=== PATIENT | female | born 1980 | race Caucasian/White ===

== ENCOUNTER 2022-04-22 22:20 | Emergency (ER) | payer SELFPAY ==
[2022-04-22 22:27] VITALS: BP 146/82; PULSE 115; RESP 18; TEMP 36.6; O2SAT 94; BMI 24.3
--- NOTE | 2022-04-22 22:45 | XRR_ITS ---
PROCEDURE INFORMATION: Exam: XR Right Hand Exam date and time: 04/22/2022 10:51 PM Age: 42 years old Clinical indication: Hand; Right; Patient HX: C/O pain and swelling x 2 days. No injury. Most notable swelling to posterior aspect between 1st and 2nd metacarpal. ; Additional info: Pain, swelling, redness TECHNIQUE: Imaging protocol: Radiologic exam of the Right hand. Views: 3 or more views. COMPARISON: No relevant prior studies available. FINDINGS: Bones/joints: The alignment of the joints is anatomic and the joint spaces are maintained. There is no evidence of acute fracture. No periosteal reaction, cortical disruption or lytic lesions are identified. Soft tissues: There is soft tissue swelling of the thenar eminence and dorsum of the hand at the level of the metacarpals and wrist. No radiopaque foreign body is seen. XR/XR hand RT min 3V* [id number] IMPRESSION: 1. Right hand soft tissue swelling. 2. No acute fracture or dislocation. 3. No radiographic evidence of osteomyelitis at this time.
--- NOTE | 2022-04-22 23:11 | ED_ITS ---
Documented by User: Kaylie Turner, BEHAVIORAL INTERVENTION SPECIALIST-C 04/22/22 23:18 HPI - Extremity Problem General: Chief complaint: Extremity Injury, Upper Stated complaint: right arm injury Time Seen by Provider: 04/22/22 22:20 History of Present Illness: Patient is in today for right hand pain. She reports that the hand pain started yesterday after she had been lifting heavy crates and then she went to clean her bosses house and the the pain got worse. She reports that somebody she knows is a nurse and told her her hand was infected. She denies fever or chills. She denies any possibility of . She denies any known injury to the hand. She reports that she has had a blood infection in the past. Associated symptoms: Deny chest pain or fever(s) Review of Systems Const: Denies: fever(s), chills or body aches Card: Denies: chest pain or palpitations Resp: Denies: dyspnea Musc: Reports: other (Right hand pain) Physical Exam Const: OTHER: Patient is agitated and minimally cooperative with HPI questioning. Patient is a poor historian Resp: COMMON NORMALS: normal respiratory effort and No use of accessory muscles Extremity: NARRATIVE EXTREMITY EXAM: Patient right dorsal hand is swollen and slightly erythematous. A soft palpable mass is appreciated at the wrist joint suspicious for a ganglion cyst. Patient has a couple of pinpoint scabs on her fingers and becomes extremely defensive when I asked her what those were from. Patient refuses to answer. Patient has limitations in flexion of the hand related to swelling and pain. Radial and ulnar pulses are intact. Cap refills less than 3 seconds. Course Vital Signs: Vital signs: Vital Signs Temperature 97.8 F 04/22/22 22:27 Pulse Rate 115 H 04/22/22 22:27 Respiratory Rate 18 04/22/22 22:27 Blood Pressure 146/82 04/22/22 22:27 Pulse Oximetry 94 04/22/22 22:27 Oxygen Delivery Me thod 04/22/22 22:27 MDM - Extremity (Nontraumatic) Medical Decision Making Consider ganglion cyst, abscess, cellulitis, fracture X-rays done 3 view hand x-ray wet read: No acute osseous deformity, soft tissue edema is present. Awaiting radiologist read. Patient states that her last tetanus is greater then 5 years ago and likely greater than 10 years ago. Ordered to update tetanus vaccination. Start patient on antibiotic clindamycin to cover for cellulitis. Ordering Toradol for pain. Advised patient of plan of care and that I was awaiting radiologist read. Patient was agreeable. After I left the room patient walked out of the hospital and told the front desk agent that she had antibiotics at home. Patient left AMA before appropriate treatment could be rendered Lab Data Radiology Impressions Hand X-Ray 04/22/22 22:45 IMPRESSION: 1. Right hand soft tissue swelling. 2. No acute fracture or dislocation. 3. No radiographic evidence of osteomyelitis at this time. Discharge Plan Discharge Patient Disposition: Left Against Medical Advice Clinical Impression: Cellulitis Condition: Stable Coding Level of Care Code ED Automatic Engraver for Chg Fwd Exam Problem Focused Documented by User: Leeroy Lechuga DO 04/24/22 06:45 HPI - Extremity Problem General: Chief complaint: Extremity Injury, Upper Stated complaint: right arm injury Time Seen by Provider: 04/22/22 22:20 Course Vital Signs: Vital signs: Vital Signs Temperature 97.8 F 04/22/22 22:27 Pulse Rate 115 H 04/22/22 22:27 Respiratory Rate 18 04/22/22 22:27 Blood Pressure 146/82 04/22/22 22:27 Pulse Oximetry 94 04/22/22 22:27 Oxygen Delivery Me thod 04/22/22 22:27 MDM - Extremity (Nontraumatic) Medical Decision Making Consider ganglion cyst, abscess, cellulitis, fracture X-rays done 3 view hand x-ray wet read: No acute osseous deformity, soft tissue edema is present. Awaiting radiologist read. Patient states that her last tetanus is greater then 5 years ago and likely greater than 10 years ago. Ordered to update tetanus vaccination. Start patient on antibiotic clindamycin to cover for cellulitis. Ordering Toradol for pain. Advised patient of plan of care and that I was awaiting radiologist read. Patient was agreeable. After I left the room [facility] and told the front desk agent that she had antibiotics at home. Patient left AMA before appropriate treatment could be rendered Chart reviewed and patient discussed with midlevel. Agree with assessment and plan. Lab Data Radiology Impressions Hand X-Ray 04/22/22 22:45 IMPRESSION: 1. Right hand soft tissue swelling. 2. No acute fracture or dislocation. 3. No radiographic evidence of osteomyelitis at this time. Discharge Plan Discharge Patient Disposition: Left Against Medical Advice Clinical Impression: Cellulitis Condition: Stable Coding Level of Care Code ED Automatic Engraver for Pascual Fwrobert Exam Problem Focused
--- NOTE | 2022-04-22 23:11 | PC.NURSE ---
After doctor saw patient, patient walked out saying 'i have antibiotics at home. Im leaving.' Pt eloped. Provider notified.
== END 2022-04-22 23:13 | disposition left against medical advice (07) ==
PROVIDERS: Emergency Provider Nurse Practitioner Family
DX: L03.113 Cellulitis of right upper limb (principal)
CPT/HCPCS: 73130; 99283

== ENCOUNTER 2022-05-04 20:14 | Emergency (ER) | payer SELFPAY ==
--- NOTE | 2022-05-04 20:17 | ECG_ITS ---
[facility] Test Date: 2022-05-04 Pat Name: Mariajose Harrison Department: Room: Gender: Female Record Keeper: : 1980 Requested By: Anirudh Smith Order Number: [id number] Deven MD: Kelli Woods M.D. Measurements Intervals [place] Rate: 86 P: 39 TN: 186 QRS: 66 QRSD: 94 T: 63 QT: 365 QTc: 438 Interpretive Statements SINUS RHYTHM No previous ECG available for comparison Electronically Signed On 05-06-2022 9:21:50 HEALTH CARE ADMINISTRATOR by Kelli Woods M.D. [id number]
[2022-05-04 20:18] VITALS: BP 166/100; PULSE 100; RESP 26; TEMP 36.6; O2SAT 97; BMI 23.6
--- NOTE | 2022-05-04 20:24 | ED_ITS ---
HPI - Overdose General: Chief Complaint: Altered Mental Status Stated Complaint: possible od Time Seen by Provider: 05/04/22 20:17 Source: EMS Mode of arrival: EMS Limitations: no limitations History of Present Illness: Patient presents here with EMS for an accidental overdose. She does have extensive history of IV drug use states she injected this diarrhea which she believes was fentanyl but she is unsure EMS did give her intranasal Narcan and found her unresponsive she is now awake and alert able answer my questions she denies any suicidality or homicidality. Review of Systems Const: Denies: fever(s), chills, body aches or change in appetite Eyes: Denies: blurry vision or eye discomfort ENMT: Denies: throat pain or dental pain Card: Denies: chest pain Resp: Denies: dyspnea GI: Denies: abdominal pain, nausea, vomiting or diarrhea : Denies: dysuria Musc: Denies: neck pain or back pain Skin/Breast: Denies: rash Neuro: Denies: headache(s) Psych: Denies: depression Emmanuel/Lymph: Denies: easy bruising All/Imm: Denies: urticaria PFSH ED PFSH: Medical History (Updated 05/04/22 @ 20:28 by Anirudh Smith MD) No pertinent past medical history Social History Substance/Drug Use: current Physical Exam Const: COMMON NORMALS: patient oriented x3 OTHER: disheveled and under influence of subsyances HENMT: COMMON NORMALS: normocephalic and atraumatic HEAD & SCALP: normocephalic and atraumatic Eye: COMMON NORMALS: Equal, round and reactive pupils present and EOMs intact bilaterally PUPIL: Yes Equal, round and reactive pupils present Neck/C-Spine: COMMON NORMALS: full ROM and supple Chest: COMMONS NORMALS: normal inspection of the chest and normal palpation of entire chest wall Resp: COMMON NORMALS: normal respiratory effort, No retractions, No use of accessory muscles and clear to auscultation bilaterally AUSCULTATION: clear to auscultation bilaterally Cardio: COMMON NORMALS: regular rate, regular rhythm and No murmurs present (Cardio) RATE: regular rate RHYTHM: regular rhythm GI: COMMON NORMALS: Normal to inspection, nondistended, normoactive bowel sounds present, Soft to palpation, non-tender and no masses PALPATION: Yes Soft to palpation Extremity: COMMON NORMALS: normal to inspection and full ROM Neuro: COMMON NORMALS: patient oriented x3, moves all extremities and no focal motor deficits Psych: COMMON NORMALS: mental status grossly normal, Normal thought process present and cooperative THOUGHT PROCESS: Normal thought process present Skin: COMMON NORMALS: no rashes or lesions noted and no wounds GENERAL SKIN EXAM: no rashes or lesions noted Course Vital Signs: Vital signs: Vital Signs Temperature 97.9 F 05/04/22 20:18 Pulse Rate 87 05/04/22 22:28 Respiratory Rate 20 H 05/04/22 22:28 Blood Pressure 166/100 05/04/22 20:18 Pulse Oximetry 100 05/04/22 22:28 Oxygen Delivery Me thod 05/04/22 20:18 MDM - Overdose Medical Decision Making Patient presents here with drug abuse and accidental drug overdose patient's been alert awake and here she refused any testing refused blood draw or urine patient had individual come and picked her up when she was discharged she was awake alert and able to make medical decision making at discharge. Discharge Plan Discharge Patient Disposition: Home Clinical Impression: Drug use Discharge Orders: Discharge ED (Routine); Ordered 05/04/22 Ordered By: Anirudh Smith Discharge Diet: Advance as tolerated Discharge Activity: Resume usual activity Patient Instructions: Polysubstance Use Disorder (ED) Coding Level of Care Code ED Microbiological Laboratory Technician for Pascual Hannah Exam Comprehensive
[2022-05-04 22:28] VITALS: PULSE 87; RESP 20; O2SAT 100
== END 2022-05-04 22:25 | disposition home or self-care (01) ==
PROVIDERS: Emergency Provider Emergency Medicine
DX: F19.90 Other psychoactive substance use, unspecified, uncomplicated (principal)
CPT/HCPCS: 93005; 99283

== ENCOUNTER 2022-12-02 20:04 | Emergency (ER) | payer BC, MEDICAID, SELFPAY ==
[2022-12-02 20:38] VITALS: BP 124/71; PULSE 92; RESP 16; TEMP 36.4; O2SAT 100; BMI 24.0
--- NOTE | 2022-12-02 22:31 | XRR_ITS ---
PROCEDURE INFORMATION: Exam: XR Chest Exam date and time: 12/02/2022 10:41 PM Age: 42 years old Clinical indication: Shortness of breath; Additional info: Shortness of breath after wasp sting TECHNIQUE: Imaging protocol: Radiologic exam of the chest. Views: 1 view. COMPARISON: No relevant prior studies available. FINDINGS: Lungs: Unremarkable. No consolidation. Pleural spaces: Unremarkable. No pleural effusion. No pneumothorax. Heart/Mediastinum: Unremarkable. No cardiomegaly. Bones/joints: Unremarkable. XR/XR chest 1V portable [id number] IMPRESSION: No acute findings.
--- NOTE | 2022-12-02 22:33 | ED_ITS ---
HPI - Animal Bite General: Chief Complaint: Animal Bite Stated Complaint: Yellow Jackets Stings Time Seen by Provider: 12/02/22 21:49 History of Present Illness: Patient is a 42-year-old female comes to the ED after multiple yellowjacket stings. Patient was outside today walking through some brush and she had multiple yellowjacket sting her back, abdomen, bilateral thighs and left arm. She is now having pain all over her body where the stings occurred. She endorses feeling a little short of breath and states she has been anxious since she got stung. Denies any allergies to yellow jackets, bees or wasp stings. Denies any lip or tongue swelling, throat tightening. Associated symptoms: Deny chills, fever(s) or headache(s) Review of Systems Const: Denies: fever(s), chills or fatigue Eyes: Denies: change in vision or eye discomfort ENMT: Denies: throat pain, odynophagia, nasal discharge or nasal congestion Card: Denies: chest pain, palpitations, edema, swelling of feet/ankles, dyspnea on exertion or orthopnea Resp: Reports: dyspnea; Denies: productive cough or non-productive cough GI: Denies: abdominal pain, nausea, vomiting, diarrhea, constipation or hematochezia : Denies: flank pain, dysuria or hematuria Musc: Denies: neck pain, back pain or extremity swelling Skin/Breast: Reports: new lesions (Yellowjacket stings on torso arms and thighs.); Denies: rash Neuro: Denies: headache(s), numbness in extremities or weakness in extremities All/Imm: Denies: throat swelling or tongue swelling [facility] ED PFSH: Medical History (Updated 12/03/22 @ 00:41 by KASANDRA Acosta) No pertinent family history No pertinent past medical history Social History Substance/Drug Use: current Physical Exam Const: COMMON NORMALS: patient oriented x3 and alert HENMT: COMMON NORMALS: normocephalic HEAD & SCALP: normocephalic MOUTH: Normal oral and palatal mucosa present, lip normal and tongue normal THROAT: posterior oropharynx normal and uvula midline Neck/C-Spine: COMMON NORMALS: supple GENERAL: Yes normal visual inspection Resp: COMMON NORMALS: normal respiratory effort, No retractions, No use of accessory muscles and clear to auscultation bilaterally AUSCULTATION: clear to auscultation bilaterally and wheezes expiratory wheezes and right lower Cardio: COMMON NORMALS: regular rate, regular rhythm, S1 normal heart sound present, S2 normal heart sound present, No gallops present (Cardio), No clicks present (Cardio), No murmurs present (Cardio) and Peripheral pulses 2+ throughout RATE: regular rate RHYTHM: regular rhythm HEART SOUNDS: S1 normal heart sound present and S2 normal heart sound present PERIPHERAL PULSES: Peripheral pulses 2+ throughout GI: COMMON NORMALS: Normal to inspection, nondistended, normoactive bowel sounds present, Soft to palpation, non-tender and no masses PALPATION: Yes Soft to palpation : COMMON NORMALS: Yes no CVA tenderness BLADDER/KIDNEY EXAM: Yes no CVA tenderness Back/Pelvis: COMMON NORMALS: no CVA tenderness Extremity: COMMON NORMALS: normal to inspection Neuro: COMMON NORMALS: patient oriented x3 SENSORIUM/ORIENTATION: Yes alert GAIT: Yes Normal gait present Skin: NARRATIVE SKIN EXAM: Patient has multiple insect sting bites that appear as erythemic papules on abdomen, back and thighs. GENERAL SKIN EXAM: dry skin Course Vital Signs: Vital signs: Vital Signs Temperature 97.5 F L 12/02/22 23:19 Pulse Rate 78 12/02/22 23:19 Respiratory Rate 18 12/02/22 23:19 Blood Pressure 124/71 12/02/22 23:19 Pulse Oximetry 99 12/02/22 23:19 Oxygen Delivery Me thod Room Air 12/02/22 22:54 MDM - Animal Bite Medical Decision Making Patient is a 42-year-old female comes to the ED after multiple yellowjacket stings. Patient was outside today walking through some brush and she had multiple yellowjacket sting her back, abdomen, bilateral thighs and left arm. She is now having pain all over her body where the stings occurred. She endorses feeling a little short of breath and states she has been anxious since she got stung. Denies any allergies to yellow jackets, bees or wasp stings. Denies any lip or tongue swelling, throat tightening. Vitals are stable. Patient appears nontoxic in no acute distress. She has some mild right lower lobe wheezing. Multiple yellowjacket sting sites seen on abdomen and back. No lip or tongue swelling noted. Chest x-ray showed no acute findings. Patient was given a dose of Benadryl, Toradol and Depo-Medrol while here in the ED. She was also given DuoNeb breathing treatment here in the ED as well. Her symptoms improved and she was ready to go home. Patient diagnosed with sting by emily and discharged home with a prescription for prednisone and ibuprofen. Told to follow-up with PCP within the next week for reevaluation. Return to ED precautions given. Patient understood and agreed with plan. Lab Data Radiology Impressions Chest X-Ray 12/02/22 22:31 IMPRESSION: No acute findings. Discharge Plan Discharge Patient Disposition: Home Clinical Impression: Stung by anna moeller Qualifiers: Encounter type: initial encounter Injury intent: accidental or unintentional Qualified Code(s): T63.461A - Toxic effect of venom of wasps, accidental (unintentional), initial encounter Condition: Stable Prescriptions: New ibuprofen 800 mg tablet 800 mg PO Q8H PRN (Reason: pain) Qty: 20 0RF prednisone 20 mg tablet 20 mg PO BID 3 Days Qty: 6 0RF Discharge Orders: Discharge ED (Routine); Ordered 12/02/22 Ordered By: Julien Hidalgo Discharge Diet: Regular Discharge Activity: Increase activity as tolerated Patient Instructions: Insect Bite or Sting (ED) Activity Restrictions/Additional Instructions: Follow-up with medical provider as directed in the next 3 to 5 days for reevaluation. Take medications as prescribed. Return to the ER or your medical provider if condition worsens. Please read and understand discharge instructions. Thank you for choosing [facility] for your healthcare needs today. Please realize this is an emergency room and that we are providing you with a medical screening exam and this may not be complete and all inclusive of all the testing and or work up that you may need to determine your ailment or severity of your illness. It is very important that you follow up as instructed or that you return to the Emergency Department should you have concerns or if your condition changes or worsens in any way. Coding Level of Care Code ED Internal Specialist for Pascual Hannah
[2022-12-02] MEDS: ipratropium-albuterol 3 mL Neb 6 ML INHALATION (22:49)
[2022-12-02 22:50] VITALS: PULSE 78; RESP 20; O2SAT 99
[2022-12-02 22:54] VITALS: PULSE 78; RESP 18; O2SAT 99
[2022-12-02] MEDS: ketorolac 60 mg/2 mL INJ IM (23:01)
[2022-12-02] MEDS: methylPREDNISolone (DEPO) 80 MG/ML INJ 1 mL IM (23:01)
[2022-12-02] MEDS: diphenhydrAMINE 25 mg Capsule PO (23:02)
[2022-12-02 23:19] VITALS: BP 124/71; PULSE 78; RESP 18; TEMP 36.4; O2SAT 99
== END 2022-12-02 23:20 | disposition home or self-care (01) ==
PROVIDERS: Emergency Provider Physician Assistant
DX: T63.461A Toxic effect of venom of wasps, accidental (unintentional), initial encounter (principal)
CPT/HCPCS: 71045; 94640; 96372; 99284; J1040; J1885

== ENCOUNTER → 2023-04-30 14:29 | Outpatient (BNVA) | payer BC, MEDICAID, SELFPAY | PROVIDERS: PCP Family Medicine; Visit Provider Family Medicine | DX: I10 Essential (primary) hypertension (principal); M79.7 Fibromyalgia | CPT/HCPCS: 80053; 80061; 80307; 84439; 84443; 85025 ==

== ENCOUNTER → 2023-06-09 08:38 | Outpatient (BNVA) | payer BC, MEDICAID, SELFPAY | PROVIDERS: PCP Family Medicine; Visit Provider Obstetrics & Gynecology | DX: Z30.9 Encounter for contraceptive management, unspecified (principal) | CPT/HCPCS: 81025; 88305 ==

== ENCOUNTER 2024-12-20 14:49 | Outpatient (CLI) | payer BC, MEDICAID, SELFPAY ==
--- NOTE | 2024-12-20 14:54 | XR_ITS ---
WS: [id number] Left foot, 3 views, 12/20/2024 Clinical Data: Foot pain and edema Comparison: None. Findings: No fractures or dislocations are seen. No bone destruction or erosion is noted. The joint spaces and soft tissues are normal. There is internal fixation of a left tibial fracture with an intramedullary hermilo and distal screws. XR/XR foot LT min 3V* [id number] Impression: Negative left foot.
== END 2024-12-20 14:50 | disposition home or self-care (01) ==
LOC: RAD 14:50
PROVIDERS: PCP Family Medicine; Visit Provider Registered Nurse Neonatal Intensive Care
DX: M79.672 Pain in left foot (principal)
CPT/HCPCS: 73630